=== PATIENT | male | born 1995 | race Caucasian/White ===

== ENCOUNTER 2021-12-05 21:08 | Emergency (ER) | payer OTHER ==
[~2021-12-05] VITALS: Ht 170.2 cm; Wt 73.0 kg
[2021-12-06] MEDS ORDERED: ONDANSETRON HCL 4MG/2ML INJ IV STA (00:11)
[2021-12-06] MEDS ORDERED: SODIUM CHLORIDE 0.9% 1,000 ML IV ONE ×2 (00:15→03:15)
[2021-12-06 00:53] LABS: BASOPHILS % 0.3 % (0.0-2.0); EOSINOPHILS % 0.2 % (0.0-5.0); HEMATOCRIT. 44.3 % (42.0-52.0); HEMOGLOBIN. 15.4 g/dL (14.0-18.0); MEAN CORPUSCULAR HEMOGLOBIN 30.3 pg (28.0-32.0); MEAN CORPUSCULAR VOLUME 86.9 fL (80.0-94.0); MEAN PLATELET VOLUME 7.7 fl (7.4-10.4); MONOCYTES % 3.8 % (2.0-8.0); NEUTROPHILS % 74.7 % (40.0-76.0); PLATELET 258 x1000/uL (130-400)
[2021-12-06 01:03] LABS: CHLORIDE 112 mEq/L (98-107)
[2021-12-06 01:11] LABS: ETHANOL BLOOD 262 mg/dL
[2021-12-06 05:03] VITALS: BP 110/62
== END 2021-12-06 05:59 | disposition home or self-care (01) ==
LOC: ER 21:08
DX: T51.0X1A Toxic effect of ethanol, accidental (unintentional), initial encounter (principal); X58.XXXA Exposure to other specified factors, initial encounter
CPT/HCPCS: 36415; 70450; 71045; 80053; 80320; 85025; 93005; 96361; 96374; 99285; J2405; J7030; Z7610; G0480